=== PATIENT | female | born 1995 | race African-American/Black ===

== ENCOUNTER 2023-05-14 21:09 | Emergency (ER) | payer BC, OTHER ==
[~2023-05-14] VITALS: Ht 162.6 cm; Wt 66.2 kg
[2023-05-14] MEDS ORDERED: KETOROLAC TROMETHAMINE INJ 30 MG/ML VIAL ONE (21:57)
[2023-05-14] MEDS ORDERED: KETOROLAC TROMETHAMINE INJ 30 MG/ML VIAL IM ONE (22:00)
[2023-05-15] MEDS ORDERED: DICL1KIT14 TP (00:15)
[2023-05-15] MEDS ORDERED: IBUP-1955 PO (00:15)
[2023-05-15 00:26] VITALS: BP 122/80; TEMP 98.6; O2SAT 99
== END 2023-05-15 00:26 | disposition home or self-care (01) ==
LOC: ER 21:33
DX: S16.1XXA Strain of muscle, fascia and tendon at neck level, initial encounter (principal); S39.012A Strain of muscle, fascia and tendon of lower back, initial encounter; S29.012A Strain of muscle and tendon of back wall of thorax, initial encounter; J45.909 Unspecified asthma, uncomplicated; V49.9XXA Car occupant (driver) (passenger) injured in unspecified traffic accident, initial encounter; Y93.89 Activity, other specified; Y92.89 Other specified places as the place of occurrence of the external cause; Y99.8 Other external cause status
CPT/HCPCS: 99285; 72125; 96372; 70450; 72131; 72128; J1885; A6403